=== PATIENT | male | born 1995 | race Caucasian/White ===

== ENCOUNTER 2018-09-05 13:59 | Emergency (ER) | payer OTHER ==
[2018-09-05] MEDS ORDERED: LIDOCAINE 1% INJ-PF (10 MG/ML) 30 ML SDV INJ ONE (15:56)
--- NOTE | 2018-09-05 17:09 | ER Document Report ---
ED Extremity Problem, Upper - General Chief Complaint: Laceration Stated Complaint: LACERATION TO LEFT HAND Time Seen by Provider: 09/05/18 15:51 Mode of Arrival: Ambulatory Information source: Patient Notes: Patient is a 21-year-old male comes emergency room complaining of left thumb laceration. He states he was helping a friend repair a garage door was putting up the piece of metal did not have a both the down firmly the door slipped and cut him across the bottom portion of the back of the thumb. Patient has full range of motion is only here to have it sutured back together. 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 He denies any other medical problems. TRAVEL OUTSIDE OF THE [place] IN LAST 30 DAYS: No - HPI Patient complains to provider of: Injury Onset: Just prior to arrival Recent injury: Yes Where: Neighbor's Quality of pain: Achy, Sharp, Throbbing Severity of pain: Moderate, Constant, Sudden Pain Level: 3 Context: Incised Associated symptoms: None Exacerbated by: Movement Relieved by: Rest, Positioning Similar symptoms previously: No Recently seen / treated by doctor: No - Related Data Allergies/Adverse Reactions: No Known Allergies Allergy (Unverified 09/05/18 14:00) Past Medical History - General Information source: Patient - Social History Smoking Status: Current Every Day Smoker Cigarette use (# per day): Yes - Quarter pack a day Chew tobacco use (# tins/day): No Smoking Education Provided: No Frequency of alcohol use: Occasional Drug Abuse: None 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 Lives with: Other - [place] [employer] [place] Family History: Reviewed & Not Pertinent Patient has suicidal ideation: No Patient has homicidal ideation: No Renal/ Medical History: Denies: Hx Peritoneal Dialysis Review of Systems - Review of Systems Constitutional: No symptoms reported EENT: No symptoms reported Cardiovascular: No symptoms reported Respiratory: No symptoms reported Gastrointestinal: No symptoms reported Genitourinary: No symptoms reported Male Genitourinary: No symptoms reported Musculoskeletal: No symptoms reported, Joint pain Skin: Other - Laceration Hematologic/Lymphatic: No symptoms reported Neurological/Psychological: No symptoms reported -: Yes All other systems reviewed and negative Physical Exam - Vital signs Vitals: Temp Pulse Resp BP Pulse Ox 98.2 F 50 L 14 126/69 H 99 12/16/18 14:22 09/05/18 14:22 09/05/18 14:22 09/05/18 14:22 09/05/18 14:22 Interpretation: Normal - Notes Notes: PHYSICAL EXAMINATION: GENERAL: Well-appearing, well-nourished and in no acute distress. HEAD: Atraumatic, normocephalic.. LUNGS: Breath sounds clear to auscultation bilaterally and equal. No wheezes rales or rhonchi. HEART: Regular rate and rhythm without murmurs Musculoskeletal: Examination of area of concern is patient's left thumb dorsal aspect at the base there is a 2 cm oval laceration that is not into the muscle it is more into the superficial tissue there is full range of motion of the thumb in all directions with no discomfort or pain and against resistance there is no discomfort or pain. Patient has good cap refill in the nailbed of the thumb and index finger. 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 The area was examined under a bloodless field and again there was no sign of tendon involvement. NEUROLOGICAL: Normal speech, normal gait. Normal sensory, motor exams PSYCH: Normal mood, normal affect. SKIN see musculoskeletal above for full details Course - Re-evaluation Re-evalutation: 09/06/18 02:18 I discussed with patient the method of suturing this up and pointed together with a horizontal mattress. I used a total of 5 sutures to pull it together with 3 of them being a simple interrupted suture and the other 2 horizontal mattress. I did the fifth additional stitch in the middle to give it extra strength. Patient is an active duty [employer] he has PT tomorrow before he leaves on home for the holidays and he is active and exercise daily. I discussed with him that he needs to be careful for at least the 8-12 days while this heals and not put a lot of stress on it like bench pressing or doing pull ups using the thumb to supervisor open hearth stockyard. Explained to him that he can pull the sutures out with ease if he is over zealous on his exercising. I elected not to place him in a splint given that he will be heading home for the holidays and I do not believe he will over exerted to the point of having the sutures pulled out. I have explained to him that 10-12 days in the area should be sufficient and he can have them removed when he gets here or at a walk-in clinic or ER [place]. He is headed back to [place]. - Vital Signs Vital signs: Temp Pulse Resp BP Pulse Ox 98.5 F 56 L 14 133/72 H 100 09/05/18 17:31 09/05/18 17:31 09/05/18 14:22 09/05/18 17:31 09/05/18 17:31 Discharge - Discharge Clinical Impression: Laceration Condition: Stable Disposition: HOME, SELF-CARE Instructions: Antibiotic Ointment Protection ([facility]), Laceration Care ([facility]), Prophylactic Antibiotic ([facility]), Soap Cleansing ([facility]) Additional Instructions: As we discussed try to keep this clean and dry as possible next 24-48 hours. Change dressing 2 times a day and when wet and dirty. After about 4 days he can leave the dressing off and open to air. Just to make sure you wash with antibacterial soap. Sutures should come out in between 10-12 days. I tell everyone that monitor really close if for any reason it does not appear to be healing appropriately before then please return to ER for recheck. Take all the antibiotics. And again avoid as much stress on in that area as possible for the next 4 days. Even after the 4 days be gentle until it is 100% healed. Prescriptions: Cephalexin Monohydrate [Keflex 500 mg Capsule] 500 mg PO Q6H 7 Days #20 capsule Forms: Special Work Note, Return to Work
[2018-09-05 17:34] VITALS: BP 133/72
== END 2018-09-05 17:33 | disposition home or self-care (01) ==
LOC: ER 13:59
DX: S61.412A Laceration without foreign body of left hand, initial encounter (principal); W26.9XXA Contact with unspecified sharp object(s), initial encounter; F17.210 Nicotine dependence, cigarettes, uncomplicated
CPT/HCPCS: 99283; 12001; J3490